=== PATIENT | male | born 1950 | race Caucasian/White ===

== ENCOUNTER → 2017-01-10 | Outpatient (CLI) | payer OTHER, MEDICARE | LOC: BHFA 09:15 | PROVIDERS: ATTEND Internal Medicine Cardiovascular Disease | DX: I25.10 Atherosclerotic heart disease of native coronary artery without angina pectoris (principal) ==

== ENCOUNTER → 2017-07-10 | Outpatient (CLI) | payer OTHER, MEDICARE | LOC: BHLMT 10:00 | PROVIDERS: ATTEND Internal Medicine Interventional Cardiology | DX: I25.10 Atherosclerotic heart disease of native coronary artery without angina pectoris (principal) | CPT/HCPCS: 93306-PO ==

== ENCOUNTER 2018-02-27 13:26 | Observation (INO) | payer OTHER, MEDICARE ==
[2018-02-27] MEDS ORDERED: levOFLOXACIN 500 MG/DEXTROSE 100 ML IV ONE (13:44)
[2018-02-27] MEDS ORDERED: LR 1,000 ML IV ONE (13:44)
[2018-02-27] MEDS ORDERED: LIDOCAINE 1% 2 ML INJ ID PRN (13:44)
[2018-02-27] MEDS ORDERED: LIDOCAINE 2% JELLY 20 ML (UROJECT) ONE (14:29)
[2018-02-27] MEDS ORDERED: MIDAZOLAM 2 MG/2 ML VIAL IVP ONE (15:12)
--- NOTE | 2018-02-27 15:12 | PDANEPAE ---
ANE History of Present Illness bladder neck constriction ANE Past Medical History - Cardiovascular History Hx Hypertension: Yes Hx Arrhythmias: Yes Hx Chest Pain: No Hx Coronary Artery / Peripheral Vascular Disease: Yes Hx CHF / Valvular Disease: No Hx Palpitations: No Cardiovascular History Comment: SSS,. post-opAfib. chronic LBBB. CABG - Pulmonary History Hx COPD: No Hx Asthma/Reactive Airway Disease: No Hx Recent Upper Respiratory Infection: No Hx Oxygen in Use at Home: No Hx Sleep Apnea: No Sleep Apnea Screening Result - Last Documented: Positive - Neurologic History Hx Cerebrovascular Accident: No Hx Seizures: No Hx Dementia: No - Endocrine History Hx Diabetes: No - Renal History Hx Renal Disorders: No - Liver History Hx Hepatic Disorders: No - Neurological & Psychiatric Hx Hx Neurological and Psychiatric Disorders: No - Cancer History Hx Cancer: Yes Cancer History Comment: prostate - Congenital Disorder History Hx Congenital Disorders: Yes Congenital History Comment: heart disease - GI History GERD: mild Hx Gastrointestinal Disorders: No - Other Health History Other Health History: post nasal drip. perferated left ear drum - Chronic Pain History Chronic Pain: No - Surgical History Prior Surgeries: [facility] CABG X 4. PPM placed. bilat hernia repair. 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: [employer] Pacemaker Model: Eluna 8DR-T Pacemaker Mode: DDDR Date Pacemaker Last Checked: 01/01/2018 ANE Patient History - Allergies Allergies/Adverse Reactions: No Known Allergies Allergy (Verified 02/21/18 10:53) - Home Medications Home medications: home medication list seen and reviewed Home Medications: Aspirin EC [Aspirin EC 81 mg (*)] 81 mg PO DAILY 06/21/16 [Last Taken 06/21/16] Cholecalciferol Vit D3 [Vitamin D3 (*)] 4,000 units PO DAILY 06/21/16 [Last Taken 06/21/16] Multivitamins [Multivitamin (*)] 1 each PO DAILY 06/21/16 [Last Taken 06/21/16] Sustain Restorative Opth 1 drop EACHEYE HS 06/21/16 [Last Taken 06/21/16] Atorvastatin Calcium [Lipitor 40 mg (*)] 40 mg PO HS 02/19/18 [Last Taken Unknown] Lisinopril [Zestril 2.5 mg (*)] 2.5 mg PO HS 02/19/18 [Last Taken Unknown] Metoprolol Tartrate [Lopressor 25 mg (*)] 25 mg PO BID@02/19/18 [Last Taken Unknown] - NPO status NPO Since - Liquids (Date): 02/27/18 NPO Since - Liquids (Time): 10:45 NPO Since - Solids (Date): 02/27/18 NPO Since - Solids (Time): 06:30 - Smoking Hx Smoking Status: Never smoked - Family Anes Hx Family Hx Anesthesia Complications: none ANE Labs/Vital Signs - Vital Signs Blood Pressure: 141/98 Heart Rate: 75 Respiratory Rate: 18 O2 Sat (%): 96 Height: 180.34 cm Weight: 79.832 kg ANE Physical Exam - Airway Neck exam: FROM Mallampati Score: Class 3 Mouth exam: normal dental/mouth exam - Pulmonary Pulmonary: no respiratory distress, no rales or rhonchi - Cardiovascular Cardiovascular: regular rate and rhythym, no murmur, rub, or gallop - ASA Status ASA Status: III
--- NOTE | 2018-02-27 15:16 | PDHPUP ---
History & Physical Update H&P update statement: This history and physical update is based on an assessment of the patient which was completed after admission or registration (within 24 hours), but prior to the surgery/procedure. H&P update: no change in patient's condition since H&P completed
[2018-02-27] MEDS ORDERED: fentaNYL 100 MCG/2 ML INJ ONE (15:21)
[2018-02-27] MEDS ORDERED: PROPOFOL 200 MG/20 ML VIAL ONE (15:21)
[2018-02-27] MEDS ORDERED: DEXAMETHASONE 4 MG/ML VIAL ONE (15:23)
[2018-02-27] MEDS ORDERED: ONDANSETRON 4 MG/2 ML VIAL ONE (15:23)
[2018-02-27] MEDS ORDERED: LIDOCAINE 2% 5 ML SDV ONE (15:23)
[2018-02-27] MEDS ORDERED: fentaNYL 100 MCG/2 ML INJ IVP PRN (15:44)
[2018-02-27] MEDS ORDERED: ONDANSETRON 4 MG/2 ML VIAL IVP PRN ×2 (15:44→16:46)
[2018-02-27] MEDS ORDERED: PROMETHAZINE HCL 25 MG/ML INJ IVP PRN ×2 (15:44→16:46)
[2018-02-27] MEDS ORDERED: HYDROmorphONE/DILAUDID 1 MG/ML INJ IVP PRN (15:44)
[2018-02-27] MEDS ORDERED: NALOXONE HCL 0.4 MG/ML INJ IVP PRN (15:44)
--- NOTE | 2018-02-27 16:40 | POSTOPPROG ---
Post Op Note Date of Operation: 02/27/18 Surgeon: Selvin Salgado (# [id number]) Anesthesia: LMA Pre-op Diagnosis: Post-TURP BNC Post-op Diagnosis: Post-TURP BNC Procedure: TURBNC Findings: See op note Inf/Abcess present in the surg proc area at time of surgery?: No EBL: Minimal Complications: None Specimen(s): Bladder neck tissue
--- NOTE | 2018-02-27 16:45 | POSTANESTH ---
Post Anesthetic Evaluation Cardiovascular Status: Similar to Pre-Op Cond Respiratory Status: Similar to Pre-op Cond. Level of Consciousness/Mental Status: Alert and Oriented Pain Control: Adequate, Prn Tx Ordered Nausea/Vomiting Control: Adequate, Prn Tx Ordered Complications Possibly Related to Anesthesia: None Noted
[2018-02-27] MEDS ORDERED: OPIUM/BELLADONNA ALKALO SUPP PR PRN (16:46)
[2018-02-27] MEDS ORDERED: HYDROCODONE/APAP 5/325 TAB PO PRN (16:46)
[2018-02-27] MEDS ORDERED: ZOLPIDEM TARTRATE 5 MG TAB PO PRN (16:46)
[2018-02-27] MEDS ORDERED: LIDOCAINE 2% JELLY 5 ML TUBE TP PRN (16:46)
--- NOTE | 2018-02-27 17:10 | GOP ---
[f rep st] OPERATIVE REPORT DATE OF OPERATION: 02/27/2018 SURGEON: Selvin Salgado MD ANESTHESIA: Laryngeal mask. PREOPERATIVE DIAGNOSIS: Bladder neck contracture. POSTOPERATIVE DIAGNOSIS: Bladder neck contracture. PROCEDURE PERFORMED: Transurethral resection of bladder neck contracture. FINDINGS: Significantly flow limiting bladder neck contracture. SPECIMENS: Bladder neck. ESTIMATED BLOOD LOSS: Minimal. INDICATIONS: This gentleman has a significantly flow limiting bladder neck contracture and presents for operative management at this time. The indications for the procedures, as well as potential risks and complications, were discussed with the patient preoperatively. He appeared to understand, his questions were answered, and he wished to proceed. Written informed surgical consent was thereafter obtained. DESCRIPTION OF PROCEDURE: The patient was brought to the operating room and administered laryngeal mask anesthesia. He was carefully placed in the dorsal lithotomy position on the cystoscopic table. The genital area was sterilely prepped with Betadine scrub and paint then draped in usual sterile fashion. Cystoscopy was performed with a 30-degree lens and a 22-Tamazight sheath. Anterior urethra revealed no abnormalities. Posterior urethra revealed a well- resected prostatic fossa but evidence of a significantly flow limiting bladder neck contracture that measured approximately 16-Tamazight in diameter. I then removed the cystoscope and inserted the 26-Tamazight resectoscopic sheath with obturator into the distal aspect of the anterior urethra. The laser resectoscope with a Leigh knife were then inserted. The Leigh knife was passed to the level of bladder neck. Using normal saline passive continuous flow, the Leigh knife was utilized to incise the bladder neck in several locations in order to increase its diameter. After doing so, I was able to easily advance the scope into the bladder. The bladder was moderately trabeculated. Ureteral orifices were normal in regards to shape and position along the trigone. Complete cystoscopy was not performed here today as it had been recently completed in the office and was otherwise unremarkable. I then replaced the Leigh knife with the resecting loop. I then systematically and circumferentially resected the bladder neck to a depth that approximated capsular fibers. Hemostasis was maintained using the loop as necessary. Once the bladder neck had been adequately resected and was widely patent, a button electrode was used to fulgurate the resected surface for hemostatic purposes. All the tissue that had been resected was removed from the bladder using an [facility] evacuator. The instruments were removed, and a 22-Tamazight, 3-way Bennett catheter inserted with 35 cc of sterile water placed in the balloon. Continuous irrigation was initiated with normal saline. The catheter irrigated manually and the return was nearly clear. The patient was then awakened, transferred to his bed, then taken to the recovery room. He tolerated the procedure well overall. COMPLICATIONS: None. DISPOSITION: He was transferred to the recovery room in stable condition and will be admitted overnight for continuous irrigation to minimize the risk of significant gross hematuria postoperatively. /[id number]/MODL MTDD
[2018-02-27] MEDS: METOPROLOL TARTRATE 25 MG TAB PO SCH (18:49)
[2018-02-27] MEDS: D5W 1/2 NS 1,000 ML IV SCH (18:49)
[2018-02-27] MEDS ORDERED: LISINOPRIL 5 MG TAB PO SCH (21:00)
[2018-02-27] MEDS ORDERED: [UNRECOGNIZED DRUG - OTHER] EACHEYE SCH (21:00)
[2018-02-27] MEDS ORDERED: ATORVASTATIN CALCIUM 40 MG TAB PO SCH (21:00)
[2018-02-28] MEDS: D5W 1/2 NS 1,000 ML IV SCH (06:30)
[2018-02-28] MEDS: METOPROLOL TARTRATE 25 MG TAB PO SCH (08:22)
--- NOTE | 2018-02-28 08:56 | SOAPPROG ---
SOAP Progress Note Assessment/Plan: Assessment: POD 1 s/p TURBNC - stable Plan: D/C [facility]. D/C home later today (w/ or w/o [facility]). Subjective: No complaints. Objective: Vital Signs Temp Pulse Resp BP Pulse Ox 36.6 C 75 16 132/93 H 97 02/28/18 07:51 02/28/18 08:22 02/28/18 07:51 02/28/18 08:22 02/28/18 07:51 02/27/18 02/28/18 03/01/18 05:59 05:59 05:59 Intake Total 1525 Output Total 2400 Balance -875 Physical Exam - Physical Exam General Appearance: WD/WN, alert, no apparent distress Male Genitalia: other (urine clear on low-rate CBI) Extremities: normal inspection Neuro/Psych: alert, normal mood/affect ICD10 Worksheet Patient Problems: Problems Problem Status Onset Acute blood loss anemia Acute Postoperative pneumothorax Acute Postoperative urinary retention Acute S/P CABG x 4 Acute 06/22/16 S/P placement of cardiac pacemaker Acute 06/25/16 Sick sinus syndrome Acute Vertigo Acute CAD, multiple vessel Chronic Left bundle branch block Chronic
[2018-02-28 15:59] VITALS: BP 108/61
--- NOTE | 2018-03-06 09:32 | GDS ---
[f rep st] DISCHARGE SUMMARY ADMITTING DIAGNOSIS: Bladder neck contracture. POSTOPERATIVE DIAGNOSIS: Bladder neck contracture. PROCEDURES: Transurethral resection of bladder neck contracture on 02/27/2018. HOSPITAL COURSE: Refer to the operative report for details regarding the procedure. Postoperatively, the patient did well. His urine was relatively clear on postoperative day 1. Bennett catheter was removed, and the patient was voiding adequately prior to discharge. His vital signs we re stable, and he was afebrile. His physical exam was otherwise unremarkable. He was ready for disc harge on postop day 1. He was to continue on his regular medications. Instructions were given to ho ld his aspirin for about 1 week. Activity restriction instructions were provided. The patient was a lso given a prescription for [place] p.r.n. pain. He was instructed to call my office to arrange tim sanchez in approximately 1 month following surgery. /[id number]/MODL
== END 2018-02-28 17:26 | disposition home or self-care (01) ==
LOC: F3N 13:26 → F1N 17:40
PROVIDERS: ADMIT Specialist; ATTEND Specialist
PROC: 0TBC8ZZ Excision of Bladder Neck, Via Natural or Artificial Opening Endoscopic (ICD-10-PCS; principal; 2018-02-27 15:15)
DX: N32.0 Bladder-neck obstruction (principal); I10 Essential (primary) hypertension; E78.5 Hyperlipidemia, unspecified; E78.00 Pure hypercholesterolemia, unspecified; I25.10 Atherosclerotic heart disease of native coronary artery without angina pectoris; I49.5 Sick sinus syndrome; Z82.49 Family history of ischemic heart disease and other diseases of the circulatory system; Z95.1 Presence of aortocoronary bypass graft; Z95.0 Presence of cardiac pacemaker; Z85.46 Personal history of malignant neoplasm of prostate
CPT/HCPCS: 52500; J1100; J1956; J2250; J2405; J2704; J3010